=== PATIENT | male | born 1965 | race Caucasian/White ===

== ENCOUNTER → 2017-11-07 | Outpatient (CLI) | payer OTHER ==
[~2017-11-07] MED LIST: ASPI81CH PO; CYCL10 PO; FLUO20 PO; GABA300 PO; HYDR1TAB94 PO; IBUP600 PO; Keflex500 MG PO; Norco 10-325 T1 EACH PO; Norco 5-325 Ta1 EACH PO; ZOLP10 PO
== END ==
LOC: LAB EV 18:22
DX: G89.4 Chronic pain syndrome (principal)
CPT/HCPCS: G0480

== ENCOUNTER 2025-08-01 07:51 | Inpatient (IN) | payer OTHER ==
[~2025-08-01] VITALS: Ht 162.6 cm; Wt 98.7 kg
[2025-08-01] MEDS ORDERED: HYDROmorphone HCl/Pf 1MG SYR IV ONE (08:30)
[2025-08-01] MEDS ORDERED: NS 1,000 ML IV SCH ×2 (08:30→11:00)
[2025-08-01] MEDS ORDERED: Ondansetron HCl 2 MG / ML 2ML Vial IV ONE (08:30)
[2025-08-01 09:05] LABS: BASOPHILS ABSOLUTE AUTO 0.05 K/mm3 (0.00-0.23); BASOPHILS PERCENT AUTO 1 % (0-2); EOSINOPHILS ABSOLUTE AUTO 0.17 K/mm3 (0.00-0.68); EOSINOPHILS PERCENT AUTO 2 % (0-6); Hematocrit 43.2 % (37.0-53.0); Hemoglobin 14.2 g/dL (13.5-17.5); IMMATURE GRAN ABSOLUTE AUTO 0.03 K/mm3 (0.00-0.10); IMMATURE GRAN PERCENT AUTO 0 % (0-1); LYMPHOCYTES ABSOLUTE AUTO 1.23 K/mm3 (0.84-5.20); LYMPHOCYTES PERCENT AUTO 11 % (21-46); MONOCYTES ABSOLUTE AUTO 0.85 K/mm3 (0.16-1.47); MONOCYTES PERCENT AUTO 8 % (4-13); Mean Corpuscular HGB Conc 32.9 g/dL (31.5-36.5); Mean Corpuscular Volume 93 fL (80-100); NEUTROPHILS ABSOLUTE AUTO 8.64 K/mm3 (1.96-9.15); NEUTROPHILS PERCENT AUTO 79 % (41-73); NRBC ABSOLUTE 0.00 K/mm3 (0.00-0.02); NRBC Auto 0.0 /100 WBC (0.0-0.2); Platelet Count 190 K/mm3 (150-400); RDW Coefficient Variation 11.9 % (11.7-14.2); RDW Standard Deviation 41.1 fL (35.1-46.3)
[2025-08-01 09:27] LABS: Alanine Aminotransfer (ALT/SGP 27.0 U/L (12-78); Albumin, Blood 3.0 g/dL (3.4-5.0); Albumin/Globulin Ratio 0.8 (0.8-1.8); Anion Gap 7.0 mmol/L (3-11); Aspartate Aminotrans (AST/SGOT 17.0 U/L (12-37); Bilirubin, Total 1.0 mg/dL (0.1-1.0); Blood Urea Nitrogen 12.0 mg/dL (8-24); CO2, Blood 29.0 mmol/L (21-32); Calcium, Blood 8.6 mg/dL (8.5-10.1); Chloride, Blood 103.0 mmol/L (98-108); Creatinine, Blood 0.69 mg/dL (0.60-1.20); Globulin, Blood 3.8 g/dL (2.2-4.0); Glucose, Blood 106.0 mg/dL (70-99); Potassium, Blood 3.7 mmol/L (3.5-5.5); Sodium, Blood 135.0 mmol/L (136-145); Total Protein, Blood 6.8 g/dL (6.4-8.2)
[2025-08-01] MEDS ORDERED: ZOLPIDEM TARTRA10 MG PO (10:28)
[2025-08-01] MEDS ORDERED: BUSPIRONE HCL10 M6 PO (10:28)
[2025-08-01] MEDS ORDERED: Piperacillin/Tazobactam Sod 4.5 GM in NS 100 ML IV ONE (10:35)
[2025-08-01] MEDS ORDERED: FLU VACC TS2025-26(6MOS UP)/PF 45 MCG/0.5 ML SYRINGE IM SCH (11:00)
[2025-08-01 12:21] VITALS: BP 158/95
[2025-08-01 15:08] VITALS: BP 170/85
--- NOTE | 2025-08-01 15:43 | NUR ---
ADMIT: REPORT FROM ER AND PT TO UNIT AT 1220, A/O, AMBULATORY IN ROOM. PT REPORTS PAIN AT R BUTT, REDNESS OUTLINED. PT PREFERS IF WOUND LEFT RADHA. AREA IS FIRM AND RED, DRAINING SMALL AMOUNT. CULTURE COLLECTED. PT OREINTED TO ROOM AND USES CALL LIGHT. MEDICATED FOR PAIN.
[2025-08-01] MEDS ORDERED: OxyCODONE 5 mg/Acetamin 325 mg TABLET PO PRN (15:55)
[2025-08-01] MEDS ORDERED: Piperacillin/Tazobactam Sod 4.5 GM in NS 100 ML IV SCH (16:00)
--- NOTE | 2025-08-01 16:49 | NUR ---
SUMMARY: NO CHANGE SINCE ADMIT, MEDICATED X1. USES CALL LIGHT.VSS, NO SAFETY CONCERNS.
[2025-08-01 19:12] VITALS: BP 137/67
[2025-08-01] MEDS ORDERED: Lactobacil 2-S.Thermo-Bifido 1 1 Cap PO SCH (21:00)
[2025-08-02 03:15] LABS: BASOPHILS ABSOLUTE AUTO 0.04 K/mm3 (0.00-0.23); BASOPHILS PERCENT AUTO 0 % (0-2); EOSINOPHILS ABSOLUTE AUTO 0.42 K/mm3 (0.00-0.68); EOSINOPHILS PERCENT AUTO 4 % (0-6); Hematocrit 39.9 % (37.0-53.0); Hemoglobin 13.0 g/dL (13.5-17.5); IMMATURE GRAN ABSOLUTE AUTO 0.04 K/mm3 (0.00-0.10); IMMATURE GRAN PERCENT AUTO 0 % (0-1); LYMPHOCYTES ABSOLUTE AUTO 1.66 K/mm3 (0.84-5.20); LYMPHOCYTES PERCENT AUTO 16 % (21-46); MONOCYTES ABSOLUTE AUTO 0.82 K/mm3 (0.16-1.47); MONOCYTES PERCENT AUTO 8 % (4-13); Mean Corpuscular HGB Conc 32.6 g/dL (31.5-36.5); Mean Corpuscular Volume 94 fL (80-100); NEUTROPHILS ABSOLUTE AUTO 7.39 K/mm3 (1.96-9.15); NEUTROPHILS PERCENT AUTO 71 % (41-73); NRBC ABSOLUTE 0.00 K/mm3 (0.00-0.02); NRBC Auto 0.0 /100 WBC (0.0-0.2); Platelet Count 191 K/mm3 (150-400); RDW Coefficient Variation 11.9 % (11.7-14.2); RDW Standard Deviation 41.1 fL (35.1-46.3)
[2025-08-02 03:34] LABS: Anion Gap 5.0 mmol/L (3-11); Blood Urea Nitrogen 10.0 mg/dL (8-24); CO2, Blood 29.0 mmol/L (21-32); Calcium, Blood 8.2 mg/dL (8.5-10.1); Chloride, Blood 106.0 mmol/L (98-108); Creatinine, Blood 0.72 mg/dL (0.60-1.20); Glucose, Blood 125.0 mg/dL (70-99); Potassium, Blood 3.7 mmol/L (3.5-5.5); Sodium, Blood 136.0 mmol/L (136-145)
[2025-08-02 04:13] VITALS: BP 111/66
--- NOTE | 2025-08-02 04:56 | NUR ---
SAMPLE CASE PORTER SUMMARY NO ACUTE CHANGES THIS SHIFT. PT AAOX4 AND INDEPENDENT IN ROOM. HAD A SHOWER AT START OF SHIFT. PT REPORTS THAT CELLULITIS TO R GLUTE IS FEELING BETTER, LESS HARD TO THE TOUCH. PAIN WELL CONTROLLED WITH PERCOCET 1 TAB. ZOSYN Q6 PER NOV. PT HAS SLEPT WELL TONIGHT. VSS, WCTM.
[2025-08-02 07:18] VITALS: BP 142/81
[2025-08-02] MEDS ORDERED: NS 250 ML IV PRN (08:40)
[2025-08-02] MEDS ORDERED: Enoxaparin 40 MG/0.4 ML SYR SC SCH (09:00)
[2025-08-02] MEDS ORDERED: Vancomycin (Pharmacy Consult) IV SCH (14:00)
[2025-08-02 15:18] VITALS: BP 139/79
--- NOTE | 2025-08-02 17:48 | NUR ---
PT WAS STABLE THIS SHIFT. PT INDEP IN ROOM. PAIN MANAGED WITH PRN PERCOCET. PT MAINTAINS SIDELYING POSITION FOR COMFORT. WOUND TO RIGHT GLUTEAL FOLD DRAINING SMALL AMT SEROSANGUINOUS FLUID. PULL UP ON FOR COMFORT. CULTURES RETURNED MRSA POSITIVE. PLACED IN CONTACT ISOLATION. STARTED ON VANCO, PHARMACY TO MANAGE. BC NEGATIVE GROWTH. IV AT TKO. EATING AND DRINKING WELL. PT VOIDING WELL. PT CALLS APPROPRIATELY NEEDED.
[2025-08-02 19:18] VITALS: BP 132/71
[2025-08-03 05:59] VITALS: BP 156/85
--- NOTE | 2025-08-03 06:11 | NUR ---
SHIFT SUMMARY AOX4. VSS. R GLUTEAL FOLD/BUTTOCKS WOUND OUTLINED W/SKIN MARKER. REDNESS TO R GLUTEAL FOLD HAS DECREASED WITHIN MARKER LINE. QUARTER SIZE WOUND W/SM AMOUNT SEROUSANGUINIUS DRAINAGE. FIRM, RED, WARM & TENDER TO TOUCH. REPORTS 7-8/10 PAIN TO R GLUTE, MEDICATED 2x W/1 TAB PERCOCET & PT ABLE TO REST. HAD BM THIS SHIFT & HAS BEEN UP MULTIPLE x TO VOID. HAD SHOWER AT BEGINNING OF SHIFT TO APPLY WARM WATER TO WOUND AREA. CALL LIGHT IN REACH & PT ABLE TO MAKE NEEDS KNOWN.
[2025-08-03 07:09] VITALS: BP 152/91
[2025-08-03 15:36] VITALS: BP 149/87
--- NOTE | 2025-08-03 17:16 | NUR ---
SHIFT SUMMARY HAS HAD A GOOD SHIFT. REPORTS PAIN HAS DECREASED. REDNESS DECREASED SLIGHTLY. IV ABX INFUSED. SURGEON TO BE CONSULTED ONCE OUT OF OR & AVAILABLE.
[2025-08-03 19:57] VITALS: BP 158/82
[2025-08-03] MEDS ORDERED: FentaNYL Citrate 50 MCG/ML 2 ML Injection IV PRN (21:30)
[2025-08-04 02:22] LABS: Vancomycin, Trough 12.3 ug/mL (5.0-10.0)
[2025-08-04 03:06] VITALS: BP 136/67
--- NOTE | 2025-08-04 03:20 | NUR ---
NOC SUMMARY- PT HAD INCREASED PAIN AFTER WALKING THE HALLS. PT TX PER NOV W/ RELIEF. PT HAS BEEN NPO SINCE [place]. NO NEW ISSUES. PT CALL LIGHT IN REACH.
[2025-08-04 06:53] VITALS: BP 137/80
[2025-08-04] MEDS ORDERED: Ketorolac Tromethamine 15mg Vial IV PRN (08:35)
[2025-08-04] MEDS ORDERED: ALBU90OI INH (10:40)
[2025-08-04] MEDS ORDERED: Polyethylene Glycol 3350 17 gm PO PRN (11:45)
--- NOTE | 2025-08-04 17:09 | NUR ---
SHIFT SUMMARY PT SEEN BY DR AVELAR. NO SURGERY PLANNED. EATING REGULAR DIET. DENIES COMPLAINTS. WILL CONTINUE TO MONITOR.
[2025-08-04 19:54] VITALS: BP 155/92
[2025-08-04] MEDS ORDERED: Docusate Sodium/Senna 1 Tab PO SCH (21:00)
--- NOTE | 2025-08-05 04:24 | NUR ---
SHIFT SUMMARY ROBBIE WAS ALERT AND FULLY ORIENTED ON ASSESSMENT. PAIN WELL MANAGED. DENIES NAUSEA, CHEST PAIN, SOB. AMBULATING WELL. LESION TO R BUTTCHEEK WEEPING YELLOW SERROUS FLUID. NO ACUTE EVENTS THIS SHIFT. NO NOTED CHANGES TO PT CONDITION.
[2025-08-05 04:45] VITALS: BP 133/70
[2025-08-05 05:13] LABS: Hematocrit 38.9 % (37.0-53.0); Hemoglobin 13.0 g/dL (13.5-17.5); Mean Corpuscular HGB Conc 33.4 g/dL (31.5-36.5); Mean Corpuscular Volume 93 fL (80-100); NRBC ABSOLUTE 0.00 K/mm3 (0.00-0.02); NRBC Auto 0.0 /100 WBC (0.0-0.2); Platelet Count 218 K/mm3 (150-400); RDW Coefficient Variation 11.8 % (11.7-14.2); RDW Standard Deviation 40.3 fL (35.1-46.3)
[2025-08-05 06:54] LABS: Albumin, Blood 2.9 g/dL (3.4-5.0); Anion Gap 9 mmol/L (3-11); Blood Urea Nitrogen 10 mg/dL (8-24); CO2, Blood 27 mmol/L (21-32); Calcium, Blood 8.7 mg/dL (8.5-10.1); Chloride, Blood 103 mmol/L (98-108); Creatinine, Blood 0.62 mg/dL (0.60-1.20); Glucose, Blood 99 mg/dL (70-99); Phosphorus, Blood 3.7 mg/dL (2.5-4.9); Potassium, Blood 3.9 mmol/L (3.5-5.5); Sodium, Blood 135 mmol/L (136-145)
[2025-08-05 07:35] VITALS: BP 151/73
[2025-08-05 15:43] VITALS: BP 121/65
--- NOTE | 2025-08-05 15:44 | NUR ---
SHIFT SUMMARY NO ACUTE EVENTS THIS SHIFT. PATIENT ALERT AND ORIENTED X4. COMMUNICATES NEEDS EFFECTIVELY. INDEPENDENT IN ROOM. VSS. DENIES PAIN. MINIMAL SS DRAINAGE TO R GLUTEAL, REDNESS RECEDING FROM MARKED MARGINS. TOLERATING PO INTAKE. VOIDING. POWERGLIDE LIZ SALINE LOCKED IN BETWEEN IV VANCO ADMINISTRATION PER EMAR. DENIES NEEDS AT THIS TIME. CALL LIGHT IN REACH.
[2025-08-05 20:33] VITALS: BP 149/77
--- NOTE | 2025-08-06 04:37 | NUR ---
SHIFT SUMMARY ROBBIE WAS ALERT AND FULLY ORINETED ON ASSESMENT. PT IND IN ROOM. PAIN WELL MANAGED. REDNESS TO AFFECTED AREA REMAINS CONTAINED. ULCER STILL OOZING. LITTLE TO NO FRESH BLOOD NOTED. DENIES CHEST PAIN, SOB, NAUSEA. NO ACUTE EVENTS OR NOTED CHANGES TO PT CONDITION.
[2025-08-06 04:47] VITALS: BP 121/59
[2025-08-06 08:02] VITALS: BP 152/80
[2025-08-06 15:45] VITALS: BP 142/75
--- NOTE | 2025-08-06 17:28 | NUR ---
SUMMARY- PT A/O X4, INDEPENDANT IN THE ROOM. PT SHOWERED TODAY. MIN PAIN FROM CELLULITIS/ULCERATION. OXYCODONE ONCE THIS AM HELPFUL. MOD AMOUNT OF SS DRAINAGE FROM WOUND, USING ATTENDS TO COLLECT DRAINAGE AND CHANGING FREQ. PT TOLERATING FOOD AND FLUIDS. VOIDING, STATES BIG BM TODAY. REPORTED OFF TO [facility] TO CARE FOR PT THE LAST FEW HOURS
[2025-08-06 19:36] VITALS: BP 159/90
[2025-08-06 21:45] VITALS: BP 138/77
[2025-08-07 03:25] VITALS: BP 121/69
--- NOTE | 2025-08-07 04:42 | NUR ---
VERBAL FROM HOSPITALIST. PT REPORTED NICOTINE CRAVINGS TO THIS RN AND REPORTED SMOKING 1/2 PPD AT BASELINE. VERBAL ORDER FOR NICOTINE PATCH 14MG DAILY RECEIVED FROM DR. CAMARA.
[2025-08-07 05:22] LABS: BASOPHILS ABSOLUTE AUTO 0.04 K/mm3 (0.00-0.23); BASOPHILS PERCENT AUTO 1 % (0-2); EOSINOPHILS ABSOLUTE AUTO 0.55 K/mm3 (0.00-0.68); EOSINOPHILS PERCENT AUTO 9 % (0-6); Hematocrit 39.8 % (37.0-53.0); Hemoglobin 13.1 g/dL (13.5-17.5); IMMATURE GRAN ABSOLUTE AUTO 0.05 K/mm3 (0.00-0.10); IMMATURE GRAN PERCENT AUTO 1 % (0-1); LYMPHOCYTES ABSOLUTE AUTO 1.57 K/mm3 (0.84-5.20); LYMPHOCYTES PERCENT AUTO 27 % (21-46); MONOCYTES ABSOLUTE AUTO 0.54 K/mm3 (0.16-1.47); MONOCYTES PERCENT AUTO 9 % (4-13); Mean Corpuscular HGB Conc 32.9 g/dL (31.5-36.5); Mean Corpuscular Volume 93 fL (80-100); NEUTROPHILS ABSOLUTE AUTO 3.14 K/mm3 (1.96-9.15); NEUTROPHILS PERCENT AUTO 53 % (41-73); NRBC ABSOLUTE 0.00 K/mm3 (0.00-0.02); NRBC Auto 0.0 /100 WBC (0.0-0.2); Platelet Count 222 K/mm3 (150-400); RDW Coefficient Variation 11.5 % (11.7-14.2); RDW Standard Deviation 39.4 fL (35.1-46.3)
[2025-08-07 05:55] LABS: Anion Gap 7.0 mmol/L (3-11); Blood Urea Nitrogen 19.0 mg/dL (8-24); CO2, Blood 29.0 mmol/L (21-32); Calcium, Blood 8.2 mg/dL (8.5-10.1); Chloride, Blood 104.0 mmol/L (98-108); Creatinine, Blood 0.68 mg/dL (0.60-1.20); Glucose, Blood 92.0 mg/dL (70-99); Potassium, Blood 3.8 mmol/L (3.5-5.5); Sodium, Blood 136.0 mmol/L (136-145)
[2025-08-07 07:38] VITALS: BP 137/63
--- NOTE | 2025-08-07 07:57 | NUR ---
SHIFT SUMMARY NOC. PT ADMIT FOR CELLULITIS OF RIGHT GLUTEAL. PT A/O X4, MAKES NEEDS KNOWN. PT VOIDING URINE AND TOLERATING PO. PT RECEIVING ABX PER EMAR. PT MEDICATED FOR PAIN WITH REPORTED RELIEF OF SX.
--- NOTE | 2025-08-07 15:54 | NUR ---
SHIFT SUMMARY PATIENT IS AOX4, ADMITTED FOR CELLULITIS OF THE RIGHT GLUTEAL FOLD. WOUND IS RED AND IS DRAINING WHITE PURULENT DRNG. OUTLINED ON ADMIT AND SWELLING IS NOTICIBLY LESS. PATIENT IS IND. IN ROOM PATIENT IS TOLERATING PO MEDICATIONS AND DIET. IV ABX DISCONTINUED TODAY AND IS STARTED ON PO ABX THIS SHIFT. NO ACUTE EVENTS VSS, CALL LIGHT IN REACH.
[2025-08-07 16:15] VITALS: BP 154/86
[2025-08-07 20:06] VITALS: BP 150/76
[2025-08-08 06:09] VITALS: BP 144/83
[2025-08-08 06:39] LABS: BASOPHILS ABSOLUTE AUTO 0.06 K/mm3 (0.00-0.23); BASOPHILS PERCENT AUTO 1 % (0-2); EOSINOPHILS ABSOLUTE AUTO 0.60 K/mm3 (0.00-0.68); EOSINOPHILS PERCENT AUTO 7 % (0-6); Hematocrit 40.3 % (37.0-53.0); Hemoglobin 13.5 g/dL (13.5-17.5); IMMATURE GRAN ABSOLUTE AUTO 0.04 K/mm3 (0.00-0.10); IMMATURE GRAN PERCENT AUTO 1 % (0-1); LYMPHOCYTES ABSOLUTE AUTO 1.48 K/mm3 (0.84-5.20); LYMPHOCYTES PERCENT AUTO 17 % (21-46); MONOCYTES ABSOLUTE AUTO 0.70 K/mm3 (0.16-1.47); MONOCYTES PERCENT AUTO 8 % (4-13); Mean Corpuscular HGB Conc 33.5 g/dL (31.5-36.5); Mean Corpuscular Volume 92 fL (80-100); NEUTROPHILS ABSOLUTE AUTO 5.96 K/mm3 (1.96-9.15); NEUTROPHILS PERCENT AUTO 67 % (41-73); NRBC ABSOLUTE 0.00 K/mm3 (0.00-0.02); NRBC Auto 0.0 /100 WBC (0.0-0.2); Platelet Count 228 K/mm3 (150-400); RDW Coefficient Variation 11.6 % (11.7-14.2); RDW Standard Deviation 39.6 fL (35.1-46.3)
[2025-08-08 07:00] LABS: Anion Gap 6.0 mmol/L (3-11); Blood Urea Nitrogen 15.0 mg/dL (8-24); CO2, Blood 30.0 mmol/L (21-32); Calcium, Blood 8.4 mg/dL (8.5-10.1); Chloride, Blood 104.0 mmol/L (98-108); Creatinine, Blood 0.64 mg/dL (0.60-1.20); Glucose, Blood 89.0 mg/dL (70-99); Potassium, Blood 4.1 mmol/L (3.5-5.5); Sodium, Blood 136.0 mmol/L (136-145)
[2025-08-08 07:28] VITALS: BP 133/77
--- NOTE | 2025-08-08 07:36 | NUR ---
SHIFT SUMMARY NOC. PT ADMITTED FOR CELLULITIS OF RIGHT GLUTEAL. PT A/O X4, TOLERATING PO INTAKE AND VOIDING URINE. PT RECEIVING ORAL ABX PER EMAR. PT MEDICATED FOR PAIN WITH REPORTED RELIEF OF SX. PT MAKES NEEDS KNOWN, CALL LIGHT IN REACH.
[2025-08-08] MEDS ORDERED: ACET325 PO (11:16)
[2025-08-08] MEDS ORDERED: VISBIOME 112.51 EACH PO (11:17)
[2025-08-08] MEDS ORDERED: CLIN150 PO (11:18)
[2025-08-08] MEDS ORDERED: Nicoderm Cq1 EAC1 TOP (11:52)
--- NOTE | 2025-08-08 12:23 | NUR ---
SHIFT / DISCHARGE SUMMARY: PATIENT EDUCATED ON ABSCESS AND HOW TO PROPERLY MANAGE WOUND UNTIL HH CAN GO [facility] [place] AND HELP. MR. JOINER VOCALIZED UNDERSTANDING. PATIENT DISCHARGED WITH BELONGINGS AND POWERGLIDE D/C. DIRECTED PATIENT TO CALL BACK TO SURGICAL FLOOR FOR OTHER QUESTIONS AND CONCERNS.
== END 2025-08-08 12:23 | disposition home health service (06) | DRG 603 ==
LOC: ER 07:51 → MEDS 07:52 → SURS 12:10
PROVIDERS: Emergency Medicine; Family Medicine; Internal Medicine; ADMIT Internal Medicine
DX: L03.317 Cellulitis of buttock (principal); E87.1 Hypo-osmolality and hyponatremia; Z59.01 Sheltered homelessness; F33.9 Major depressive disorder, recurrent, unspecified; E66.9 Obesity, unspecified; N40.0 Benign prostatic hyperplasia without lower urinary tract symptoms; F17.210 Nicotine dependence, cigarettes, uncomplicated; G62.9 Polyneuropathy, unspecified; G47.00 Insomnia, unspecified; F12.90 Cannabis use, unspecified, uncomplicated; B95.62 Methicillin resistant Staphylococcus aureus infection as the cause of diseases classified elsewhere; Z23 Encounter for immunization; Z98.1 Arthrodesis status; Z87.39 Personal history of other diseases of the musculoskeletal system and connective tissue; Z68.36 Body mass index [BMI] 36.0-36.9, adult; Z91.51 Personal history of suicidal behavior; Z79.899 Other long term (current) drug therapy
CPT/HCPCS: 36415; 72193; 80048; 80053; 80069; 80202; 83605; 85025; 85027; 87040; 87070; 87075; 87077; 87147; 87186; 87205; 96361; 96365-59; 96375; 99285-25; A9270; C1751; G0378; J1171; J1650; J1885; J2405; J2543; J3010; J3373; J7030; J7040; J7050; Q9967

== ENCOUNTER 2025-08-24 16:21 | Emergency (ER) | payer OTHER ==
[~2025-08-24] VITALS: Ht 165.1 cm; Wt 101.6 kg
[~2025-08-24 16:21] MED LIST changes: +ACET325 PO; +ALBU90OI INH; +BUSPIRONE HCL10 M6 PO; +CLIN150 PO; +Nicoderm Cq1 EAC1 TOP; +VISBIOME 112.51 EACH PO; +ZOLPIDEM TARTRA10 MG PO
[2025-08-24] MEDS ORDERED: Vancomycin (Pharmacy Consult) IV PRN (18:50)
[2025-08-24] MEDS ORDERED: CEPH500 PO (19:36)
[2025-08-24] MEDS ORDERED: RX Prepack 6 Tabs Oxycodone 5mg UD ONE (19:40)
[2025-08-24 19:48] LABS: Glucose, Blood 111 mg/dL (70-99)
[2025-08-24 21:15] VITALS: BP 150/83
== END 2025-08-24 21:25 | disposition home or self-care (01) ==
LOC: ER 16:21
PROVIDERS: Emergency Medicine
DX: L03.115 Cellulitis of right lower limb (principal); I10 Essential (primary) hypertension; Z79.899 Other long term (current) drug therapy; Z87.891 Personal history of nicotine dependence
CPT/HCPCS: 82947; 96365; 99283-25; A9270; J3373; J7050